=== PATIENT | female | born 1990 | race Caucasian/White ===

== ENCOUNTER 2022-04-08 13:46 | Emergency (ER) | payer MEDICAID ==
[~2022-04-08] VITALS: Ht 165.1 cm; Wt 80.0 kg
[2022-04-08 13:49] VITALS: BP 106/72
[2022-04-08] MEDS ORDERED: ONDANSETRON 4MG ODT PO ONE (15:00)
[2022-04-08] MEDS ORDERED: ONDA4TAB50 MT (16:52)
== END 2022-04-08 17:22 | disposition home or self-care (01) ==
LOC: ER 13:46
DX: T40.711A Poisoning by cannabis, accidental (unintentional), initial encounter (principal); F12.988 Cannabis use, unspecified with other cannabis-induced disorder; M79.18 Myalgia, other site; R00.2 Palpitations; G25.1 Drug-induced tremor; Y93.89 Activity, other specified; Y92.520 Airport as the place of occurrence of the external cause
CPT/HCPCS: 93005; 99283